=== PATIENT | male | born 2005 | race Caucasian/White ===

== ENCOUNTER 2023-10-03 09:29 | Emergency (ER) | payer OTHER ==
[~2023-10-03] VITALS: Ht 172.7 cm; Wt 72.7 kg
[2023-10-03 09:37] VITALS: BP 120/75; PULSE 88; RESP 18; TEMP 99.9
[2023-10-03 11:41] LABS: BASOPHILS % (AUTO) 0.4 % (0.0-2.0); EOSINOPHILS % (AUTO) 0.3 % (1.0-6.0); HEMATOCRIT 42.5 % (41-53); HEMOGLOBIN 14.4 g/dL (13.5-17.5); MEAN CORPUSCULAR HEMOGLOBIN 29.7 pg (26.0-34.0); MEAN CORPUSCULAR HGB CONC 33.9 G/dL (31.0-37.0); MEAN CORPUSCULAR VOLUME 88 fL (80-100); MONOCYTES # (AUTO) 1.6 K/uL (0.1-1.0); NEUTROPHILS # (AUTO) 10.7 K/uL (1.8-7.7); NEUTROPHILS % (AUTO) 74.3 % (40.0-70.0); PLATELET COUNT (AUTO) 317 K/uL (150-450); RED BLOOD CELL COUNT(AUTO) 4.86 MIL/uL (4.50-5.90); RED CELL DISTRIBUTION WIDTH 12.7 % (11.5-14.5); WHITE BLOOD COUNT (AUTO) 14.4 K/uL (4.5-11.0)
[2023-10-03 11:51] LABS: ANION GAP 10 mmol/L (8-16); CALCIUM, TOTAL 9.2 mg/dL (8.8-10.5); CARBON DIOXIDE 28 mmol/L (22-29); CHLORIDE 101 mmol/L (98-107); CREATININE 1.02 mg/dL (0.60-1.30); GLOMERULAR FILTR. RATE CALC > 60 mL/min (>60); GLUCOSE,RANDOM 90 mg/dL (70-110); POTASSIUM 3.6 mmol/L (3.5-5.1); SODIUM SERUM 139 mmol/L (136-145); UREA NITROGEN, BLOOD 13 mg/dL (7-18)
[2023-10-03 11:58] LABS: ALANINE AMINOTRANSFERASE 23 U/L (12-78); ALBUMIN 4.2 g/dL (3.4-5.0); ALKALINE PHOSPHATASE 65 U/L (46-116); ASPARTATE AMINOTRANSFERASE 17 U/L (15-37); BILIRUBIN,TOTAL 0.9 mg/dL (0.1-1.0); LIPASE 15 U/L (16-77); TOTAL PROTEIN, SERUM 8.3 g/dL (6.4-8.2)
[2023-10-03 12:35] LABS: ALCOHOL, BLOOD (SERUM) < 3 mg/dL (0-10)
[2023-10-03] MEDS ORDERED: ACET-66 PO (12:47)
[2023-10-03] MEDS ORDERED: BENZ11.95 TP (12:47)
[2023-10-03] MEDS ORDERED: PENI500T2 PO (12:47)
== END 2023-10-03 13:12 | disposition home or self-care (01) ==
LOC: EMS 09:30
DX: K12.1 Other forms of stomatitis (principal); F19.10 Other psychoactive substance abuse, uncomplicated
CPT/HCPCS: 99283; 80053; 83690; 85025; G0480